=== PATIENT | male | born 1985 | race Caucasian/White ===

== ENCOUNTER 2024-03-17 19:28 | Emergency (ER) | payer MEDICAID ==
[~2024-03-17] VITALS: Ht 182.9 cm; Wt 79.0 kg
[2024-03-17 19:43] VITALS: BP 124/91; PULSE 86; RESP 16; TEMP 98; O2SAT 98
== END 2024-03-17 23:15 | disposition home or self-care (01) ==
LOC: ER 19:28
DX: Z11.1 Encounter for screening for respiratory tuberculosis (principal); F19.90 Other psychoactive substance use, unspecified, uncomplicated
CPT/HCPCS: 71045; 99283

== ENCOUNTER 2024-08-22 21:35 | Emergency (ER) | payer MEDICAID ==
[~2024-08-22] VITALS: Ht 182.9 cm; Wt 82.0 kg
[2024-08-22 21:36] VITALS: O2SAT 98
[2024-08-22 22:01] VITALS: BP 136/79; PULSE 111; RESP 18; TEMP 36.5; O2SAT 99
[2024-08-22] MEDS ORDERED: IBUP-2029 MT (23:55)
== END 2024-08-22 21:56 | disposition home or self-care (01) ==
LOC: ER 21:35
DX: S53.402A Unspecified sprain of left elbow, initial encounter (principal); S60.222A Contusion of left hand, initial encounter; Y08.89XA Assault by other specified means, initial encounter; Y93.89 Activity, other specified; Y92.89 Other specified places as the place of occurrence of the external cause; Y99.8 Other external cause status
CPT/HCPCS: 73080; 73130; 99284